=== PATIENT | female | born 1975 ===

== ENCOUNTER 2017-10-05 08:55 | Day surgery (SDC) | payer BC, SELFPAY ==
[~2017-10-05] VITALS: Ht 170.2 cm; Wt 65.0 kg
[~2017-10-05 08:55] MED LIST: SYNTHROID125 MCG ORAL
[2017-10-05 09:31] VITALS: BP 113/72
[2017-10-05] MEDS ORDERED: Lidocaine 1% Plain 30 ml INJ ONE ×5 (10:31→14:33)
[2017-10-05] MEDS ORDERED: Bacitracin Oint 15gm Tube TOPIC ONE (10:31)
[2017-10-05] MEDS ORDERED: EPINEPHrine 1mg/1ml Amp ONE (10:31)
[2017-10-05] MEDS ORDERED: Povidone-Iodine 5% opth solution ONE (11:48)
--- NOTE | 2017-10-05 11:51 | Pre-Procedure Note/Attestation ---
Pre-Procedure Note/Attestation Complete Prior to Procedure Procedure Narrative: Fat transfer to cheeks, temples, lower lip; micro-fat to fine lines, gonzalo-fat transfer to full face and neck; upper blepharoplasty; left ear lobe repair Indications for Procedure Pre-Operative Diagnosis: facial aging, upper lid blepharochalasis, left earlobe tear Attestation I attest that I discussed the nature of the procedure; its benefits; risks and complications; and alternatives (and the risks and benefits of such alternatives ), prior to the procedure, with the patient (or the patient's legal merchandising representative). I attest that, if there was a reasonable possibility of needing a blood transfusion, the patient (or the patient's legal merchandising representative) was given the [place] [employer] [facility] [employer] [facility] standardized written summary, pursuant to the Karan Bruce Blood Safety Act ([place] Health and Safety Code # 1645, as amended). I attest that I re-evaluated the patient just prior to the surgery and that there has been no change in the patient's H&P, except as documented below: DANNY COTTO M.D. Oct 05, 2017 11:51
[2017-10-05] MEDS ORDERED: NS Irrig 1000ml IRRIG ONE (13:54)
[2017-10-05] MEDS ORDERED: EPINEPHrine 1mg/1ml Amp IV ONE (13:55)
[2017-10-05 16:20] VITALS: BP 129/70
--- NOTE | 2017-10-05 22:30 | Operative Note - Dictated ---
DATE OF OPERATION: 10/05/2017 PREOPERATIVE DIAGNOSIS: Facial aging and upper eyelid blepharochalasis and left earlobe tear. POSTOPERATIVE DIAGNOSIS: Facial aging and upper eyelid blepharochalasis and left earlobe tear. PROCEDURE: Autologous fat transfer to cheeks, upper and lower micro fat to lower eyelids and perioral area and rhytides and gonzalo fat (mist) to full face, upper blepharoplasty and left earlobe repair. SURGEON: Pavel Michel M.D. CFD ENGINEER: None. ANESTHESIA: Local by surgeon. DESCRIPTION OF PROCEDURE: After consent was obtained, the patient was taken the operating, placed supine on the OR table. Local anesthesia consisting of 1% lidocaine with epinephrine was infiltrated into the infraorbital area and the areas of proposed incision for fat transfer in the temples and in the mental nerve as well. The supraorbital and supratrochlear nerves were blocked as well. Tumescent anesthesia was infiltrated after local infiltration into the sites of injection into the flanks and knees symmetrically. A total of 1 liter of tumescent solution was used. The upper blepharoplasty was done next after first infiltrating the marked areas with the same local anesthetic described above. An ellipse of skin was excised on either side and an ellipse of orbicularis oculi muscle, 3 mm in height was excised from the right side. After hemostasis was obtained, the incision was closed with 6-0 Prolene in a standard subcuticular fashion with interrupted sutures for the gaps between for any slight separations. The same procedure and closure was performed on the left side. Autologous fat was then harvested from the bilateral flanks. A small was taken from each inner knee as well. Adequate fat was taken for autologous fat transfer and a total of 2.5 mL into each upper cheek and then 2 mL of autologous fat tapering down into the lower face. A 3 mL were placed into each moravian. A total of 2 mL of micro fat was then processed and injected into the fine lines and nasolabial folds, it should be noted that 0.5 mL of regular autologous fat was injected into each upper nasal labial fold. Gonzalo fat was then processed and injected with 27-gauge needles throughout the enlarged areas of the anterior face, perioral area, forehead area and . The 0.5 mL of autologous fat was injected into each prominence as marked over the lower lip and then the [place] gold instrument was then used to deliver the fat into the epidermis in the usual fashion. The left earlobe repair was next done by coring out the skin around the hole and then closing it with 6-0 Prolene suture material. All incisions on the body were closed with 5-0 Prolene and all sponge and instrument counts were correct at the end of procedure. The patient was taken to recovery in excellent condition postoperatively. Pavel Michel DR: MATT JOB#: [id number] CC:
== END 2017-10-05 17:35 | disposition home or self-care (01) ==
LOC: SUR 08:55
DX: H02.34 Blepharochalasis left upper eyelid (principal); H02.31 Blepharochalasis right upper eyelid; S01.312A Laceration without foreign body of left ear, initial encounter
CPT/HCPCS: 12011; 15823; 20926; 81025; J0171; J2001